=== PATIENT | female | born 1985 | race African-American/Black ===

== ENCOUNTER 2018-03-29 09:32 | Emergency (ER) | payer OTHER, MEDICARE, MEDICAID ==
[2018-03-29] MEDS ORDERED: KETOROLAC TROMETHAMINE 60 MG/2 ML SDV IM ONE (10:17)
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
--- NOTE | 2018-03-29 11:00 | RADIOLOGY REPORT (SQ) ---
EXAM DESCRIPTION: CT HEAD WITHOUT COMPLETED DATE/TIME: 03/29/2018 10:46 am REASON FOR STUDY: Head injury headache COMPARISON: Multiple since 05/15/2006 most recently 02/07/2014 TECHNIQUE: Axial images acquired through the brain without intravenous contrast. Images reviewed wi th bone, brain and subdural windows. Additional sagittal and coronal reconstructions were generated. Images stored on PACS. All CT scanners at this facility use dose modulation, iterative reconstruction, and/or weight based d osing when appropriate to reduce radiation dose to as low as reasonably achievable (ALARA). [facility]: Dose Right [facility]: CareDose [facility]: Dose Right [facility]: Teradose 4D [facility]: [facility] RADIATION DOSE: CT Rad equipment meets quality standard of care and radiation dose reduction techniq ues were employed. CTDIvol: 53.2 mGy. DLP: 1044 mGy-cm. mGy. LIMITATIONS: None. FINDINGS: VENTRICLES: Normal size and contour. CEREBRUM: No masses. No hemorrhage. No midline shift. No evidence for acute infarction. Normal gra y/white matter differentiation. No areas of low density in the white matter. CEREBELLUM: No masses. No hemorrhage. No alteration of density. No evidence for acute infarction. EXTRAAXIAL SPACES: No fluid collections. No masses. ORBITS AND GLOBE: No intra- or extraconal masses. Normal contour of globe without masses. CALVARIUM: No fracture. PARANASAL SINUSES: No fluid or mucosal thickening. SOFT TISSUES: No mass or hematoma. OTHER: No other significant finding. IMPRESSION: NORMAL BRAIN CT WITHOUT CONTRAST. EVIDENCE OF ACUTE STROKE: NO. COMMENT: Quality ID # [id number]: Final reports with documentation of one or more dose reduction techniques (e.g., Automated exposure control, adjustment of the mA and/or kV according to patient size, use of iterative reconstruction technique) TECHNICAL DOCUMENTATION: JOB ID: [id number] [employer]- All Rights Reserved Reading location - IP/workstation name: [email or web address]
[2018-03-29 12:33] VITALS: BP 116/63
== END 2018-03-29 12:34 | disposition home or self-care (01) ==
LOC: ER 09:32
DX: R51 Headache (principal); V68.6XXA Passenger in heavy transport vehicle injured in noncollision transport accident in traffic accident, initial encounter
CPT/HCPCS: 99284; 96372; 70450; J1885

== ENCOUNTER → 2019-03-28 | Outpatient (CLI) | payer MEDICARE, MEDICAID | LOC: RAD 10:15 | PROVIDERS: ATTEND Specialist | DX: G40.89 Other seizures (principal); G93.49 Other encephalopathy ==

== ENCOUNTER 2019-05-06 16:35 | Emergency (ER) | payer MEDICARE, MEDICAID ==
--- NOTE | 2019-05-06 16:56 | ER Document Report ---
ED Medical Screen (RME) - General Stated Complaint: POSSIBLE SEIZURE Time Seen by Provider: 05/06/19 16:44 Primary Care Provider: GEORGI SOTO MD [Primary Care Provider] - Follow up as needed Notes: RN states that EMS was called to patient's house initially for concern about seizure. Patient does have a history of seizures although patient denies any recent seizure. RN states that EMS reported that mother insisted that EMS take patient and not bring her back. Patient poor historian, patient does complain of tenderness to the right upper lip area I have greeted and performed a rapid initial assessment of this patient. A comprehensive ED assessment and evaluation of the patient, analysis of test results and completion of the medical decision making process will be conducted by additional ED providers. TRAVEL OUTSIDE OF THE [place] IN LAST 30 DAYS: No - Related Data Allergies/Adverse Reactions: phenytoin [From Dilantin] Allergy (Verified 05/06/19 16:43) Past Medical History Neurological Medical History: Reports: Hx Seizures Renal/ Medical History: Denies: Hx Peritoneal Dialysis - Immunizations Hx Diphtheria, Pertussis, Tetanus Vaccination: Yes - unknown Physical Exam - Skin Skin irregularity: other - Old appearing ulceration to inside right upper lip Doctor's Discharge - Discharge Referrals: GEORGI SOTO MD [Primary Care Provider] - Follow up as needed
--- NOTE | 2019-05-06 18:06 | ER Document Report ---
ED General - General Chief Complaint: Psych Problem Stated Complaint: POSSIBLE SEIZURE Time Seen by Provider: 05/06/19 16:44 Primary Care Provider: GEORGI SOTO MD [Primary Care Provider] - Follow up as needed Mode of Arrival: Medic Information source: Patient Cannot obtain history due to: Mentally challenged TRAVEL OUTSIDE OF THE [place] IN LAST 30 DAYS: No - HPI Onset: This afternoon Onset/Duration: Gradual Quality of pain: No pain Severity: None Associated symptoms: None Exacerbated by: Denies Relieved by: Denies Similar symptoms previously: No Recently seen / treated by doctor: No Notes: 33 year old female with a history of MR and Seizures brought to the ER for evalu ation. Apparently the patient's mother called EMS and told them to bring the patient to a mental hospital and EMS brought the patient here to this ER. The patient has MR and has no complaints except for a slightly swollen right upper lip which she says is from hitting mouth on her bed. The chief complaint is seizure but there was no seizure activity witnessed or reported by anyone. - Related Data Allergies/Adverse Reactions: phenytoin [From Dilantin] Allergy (Verified 05/06/19 16:43) Home Medications: keppra, depakote Past Medical History - General Information source: Patient Cannot obtain history due to: Mentally challenged - Social History Smoking Status: Never Smoker Frequency of alcohol use: None Drug Abuse: None Lives with: Family Family History: Reviewed & Not Pertinent Patient has suicidal ideation: No Patient has homicidal ideation: No Neurological Medical History: Reports: Hx Seizures, Other - MR Renal/ Medical History: Denies: Hx Peritoneal Dialysis - Immunizations Hx Diphtheria, Pertussis, Tetanus Vaccination: Yes - unknown Review of Systems - Review of Systems Constitutional: No symptoms reported EENT: Other - swollen right upper lip Cardiovascular: No symptoms reported Respiratory: No symptoms reported Gastrointestinal: No symptoms reported Genitourinary: No symptoms reported Female Genitourinary: No symptoms reported Musculoskeletal: No symptoms reported Skin: No symptoms reported Hematologic/Lymphatic: No symptoms reported Neurological/Psychological: No symptoms reported -: Yes All other systems reviewed and negative Physical Exam - Vital signs Vitals: Temp Resp Pulse Ox 98.0 F 19 100 05/06/19 16:44 05/06/19 16:44 05/06/19 16:44 - Notes Notes: GENERAL: Well-appearing, well-nourished and in no acute distress. Patient has clear MR. HEAD: Atraumatic, normocephalic. EYES: Pupils equal round and reactive to light, extraocular movements intact, sclera anicteric, conjunctiva are normal. ENT: Nares patent, oropharynx clear without exudates. Right upper lip is mildly swollen. Moist mucous membranes. NECK: Normal range of motion, supple without lymphadenopathy or JVD. LUNGS: Breath sounds clear to auscultation bilaterally and equal. No wheezes rales or rhonchi. HEART: Regular rate and rhythm without murmurs, rubs or gallops. ABDOMEN: Soft, nontender, normoactive bowel sounds. No guarding, no rebound. No masses appreciated. EXTREMITIES: Normal range of motion, no pitting or edema. No clubbing or cyanosis. NEUROLOGICAL: Patient has MR but no focal neuro deficits. Speech slow, gait not tested. PSYCH: Patient has MR, Patient is denying SI and HI. SKIN: Warm, Dry, normal turgor, no rashes or lesions noted. Course - Re-evaluation Re-evalutation: 05/06/19 18:49 The patient was brought to the ER for evaluation. The patient has MR and apparently her mother called 911 and told EMS to bring the patient to a psych hospital. The patient meets no inpatient psych criteria. Adult protective services was contacted since the patient is unable to care for herself and since the mother of the patient will not answer phone calls from nursing staff. - Vital Signs Vital signs: Temp Pulse Resp BP Pulse Ox 97.4 F 73 16 116/78 100 05/06/19 20:08 05/06/19 20:08 05/06/19 20:08 05/06/19 20:08 05/06/19 20:08 Discharge - Discharge Clinical Impression: Cough Contusion, lip Qualifiers: Encounter type: initial encounter Qualified Code(s): S00.531A - Contusion of lip, initial encounter Condition: Stable Disposition: HOME, SELF-CARE Instructions: Contusion ([facility]) Additional Instructions: Follow up with your primary care doctor and with adult protective services. Referrals: GEORGI SOTO MD [Primary Care Provider] - Follow up as needed
[2019-05-06 20:09] VITALS: BP 116/78
[2019-05-07] MEDS ORDERED: DIVALPROEX SODIUM 500 MG TAB.SR.24H PO ONE ×2 (02:16→08:55)
[2019-05-07] MEDS ORDERED: ZONISAMIDE 100 MG CAPSULE PO ONE (02:16)
[2019-05-07] MEDS ORDERED: LEVETIRACETAM 500 MG TABLET PO ONE ×2 (02:17→08:55)
[2019-05-07] MEDS ORDERED: ZONISAMIDE 100 MG CAPSULE PO SCH (09:00)
--- NOTE | 2019-05-07 09:28 | ER Document Report ---
Doctor's Note Notes: 05/07/19 09:26 Pt seen this am without acute medical issues. Sent here via EMS by mother. We have informed social work and they are going to provide some advice/ auto travel counselor as to this point the mother has been unable to be contacted or spoken with regarding this lady's disposition.
== END 2019-05-07 10:30 | disposition home or self-care (01) ==
LOC: ER 16:35
DX: S00.531A Contusion of lip, initial encounter (principal); R56.9 Unspecified convulsions; R05 Cough; F79 Unspecified intellectual disabilities; X58.XXXA Exposure to other specified factors, initial encounter
CPT/HCPCS: 99284; A9270 ×2

== ENCOUNTER → 2019-08-14 | Outpatient (CLI) | payer MEDICARE, MEDICAID ==
--- NOTE | 2019-08-14 17:47 | WOMENS IMAGING REPORT ---
EXAM DESCRIPTION: 3D DX MAMMO BILAT; U/S BREAST UNILATERAL, COMPL IMAGES COMPLETED DATE/TIME: 08/14/2019 9:58 am; 08/14/2019 10:52 am REASON FOR STUDY: N64.4 PAIN IN BOTH BREAST; LT BREAST N64.4; RT BREAST N64.4 N64.4 MASTODYNIA COMPARISON: Baseline study EXAM PARAMETERS: Standard craniocaudal and mediolateral oblique views of each breast recorded using digital acquisition and breast tomosynthesis. Read with the assistance of CAD: .[employer] - [facility] Version 9.2 LIMITATIONS: None. FINDINGS: RIGHT BREAST MASSES: Low-density well-circumscribed mammographic mass 5 mm in size far lateral right breast about 8 cm from the nipple. This was subsequently shown at ultrasound to represent a benign cyst. CALCIFICATIONS: No new or suspicious calcifications. ARCHITECTURAL DISTORTION: None. ASYMMETRY: None noted. OTHER: No other significant findings. LEFT BREAST MASSES: No suspicious masses. CALCIFICATIONS: No new or suspicious calcifications. ARCHITECTURAL DISTORTION: None. ASYMMETRY: None noted. OTHER: No other significant finding. Bilateral breast ultrasound: Patient presents with bilateral breast pain. Ultrasound of the right and left breasts was performed. In the right lateral breast about the 9 o'clock position, a 5 mm simple breast cyst is present. No o ther focal findings. No right breast solid masses, dilated ducts, worrisome acoustic absorption. Ultrasound of the left breast is unremarkable. No left breast solid masses, dilated ducts, cysts, wo rrisome acoustic absorption. IMPRESSION: No mammographic or sonographic evidence for malignancy bilaterally BREAST DENSITY: b. There are scattered areas of fibroglandular density. BIRAD: ASSESSMENT: 2 Benign findings. RECOMMENDATION: RECOMMENDED FOLLOW UP: Please continue yearly bilateral screening mammography beginn ing at age 38 SPECIFIC INTERVENTION/IMAGING/CONSULTATION RECOMMENDED:No additional intervention/ imaging/consultati on needed at this time. COMMUNICATION:Patient notified by letter COMMENT: The patient has been notified of the results by letter per MQSA requirements. Additional no tification policies are in place for contacting patient with suspicious or incomplete findings. Quality ID #[id number]: The [employer] recommends an annual screening mammogram for women aged 40 years or over. This facility utilizes a reminder system to ensure that all patients receive reminder letters, and/or direct phone calls for appointments. This includes reminders for routine scr eening mammograms, diagnostic mammograms, or other Breast Imaging Interventions when appropriate. Th is patient will be placed in the appropriate reminder system. TECHNICAL DOCUMENTATION: FINDING NUMBER: (1) ASSESSMENT: (1) JOB ID: [id number] 2010 [employer]- All Rights Reserved Reading location - IP/workstation name: [email or web address]
--- NOTE | 2019-08-14 17:47 | WOMENS IMAGING REPORT ---
EXAM DESCRIPTION: 3D DX MAMMO BILAT; U/S BREAST UNILATERAL, COMPL IMAGES COMPLETED DATE/TIME: 08/14/2019 9:58 am; 08/14/2019 10:52 am REASON FOR STUDY: N64.4 PAIN IN BOTH BREAST; LT BREAST N64.4; RT BREAST N64.4 N64.4 MASTODYNIA COMPARISON: Baseline study EXAM PARAMETERS: Standard craniocaudal and mediolateral oblique views of each breast recorded using digital acquisition and breast tomosynthesis. Read with the assistance of CAD: .[employer] - [employer] Version 9.2 LIMITATIONS: None. FINDINGS: RIGHT BREAST MASSES: Low-density well-circumscribed mammographic mass 5 mm in size far lateral right breast about 8 cm from the nipple. This was subsequently shown at ultrasound to represent a benign cyst. CALCIFICATIONS: No new or suspicious calcifications. ARCHITECTURAL DISTORTION: None. ASYMMETRY: None noted. OTHER: No other significant findings. LEFT BREAST MASSES: No suspicious masses. CALCIFICATIONS: No new or suspicious calcifications. ARCHITECTURAL DISTORTION: None. ASYMMETRY: None noted. OTHER: No other significant finding. Bilateral breast ultrasound: Patient presents with bilateral breast pain. Ultrasound of the right and left breasts was performed. In the right lateral breast about the 9 o'clock position, a 5 mm simple breast cyst is present. No o ther focal findings. No right breast solid masses, dilated ducts, worrisome acoustic absorption. Ultrasound of the left breast is unremarkable. No left breast solid masses, dilated ducts, cysts, wo rrisome acoustic absorption. IMPRESSION: No mammographic or sonographic evidence for malignancy bilaterally BREAST DENSITY: b. There are scattered areas of fibroglandular density. BIRAD: ASSESSMENT: 2 Benign findings. RECOMMENDATION: RECOMMENDED FOLLOW UP: Please continue yearly bilateral screening mammography beginn ing at age 40 SPECIFIC INTERVENTION/IMAGING/CONSULTATION RECOMMENDED:No additional intervention/ imaging/consultati on needed at this time. COMMUNICATION:Patient notified by letter COMMENT: The patient has been notified of the results by letter per MQSA requirements. Additional no tification policies are in place for contacting patient with suspicious or incomplete findings. Quality ID #225: The [employer] recommends an annual screening mammogram for women aged 40 years or over. This facility utilizes a reminder system to ensure that all patients receive reminder letters, and/or direct phone calls for appointments. This includes reminders for routine scr eening mammograms, diagnostic mammograms, or other Breast Imaging Interventions when appropriate. Th is patient will be placed in the appropriate reminder system. TECHNICAL DOCUMENTATION: FINDING NUMBER: (1) ASSESSMENT: (1) JOB ID: [id number] 2010 [employer]- All Rights Reserved Reading location - IP/workstation name: [email or web address]
--- NOTE | 2019-08-14 17:47 | WOMENS IMAGING REPORT ---
EXAM DESCRIPTION: 3D DX MAMMO BILAT; U/S BREAST UNILATERAL, COMPL IMAGES COMPLETED DATE/TIME: 08/14/2019 9:58 am; 08/14/2019 10:52 am REASON FOR STUDY: N64.4 PAIN IN BOTH BREAST; LT BREAST N64.4; RT BREAST N64.4 N64.4 MASTODYNIA COMPARISON: Baseline study EXAM PARAMETERS: Standard craniocaudal and mediolateral oblique views of each breast recorded using digital acquisition and breast tomosynthesis. Read with the assistance of CAD: .[employer] - [employer] Version 9.2 LIMITATIONS: None. FINDINGS: RIGHT BREAST MASSES: Low-density well-circumscribed mammographic mass 5 mm in size far lateral right breast about 8 cm from the nipple. This was subsequently shown at ultrasound to represent a benign cyst. CALCIFICATIONS: No new or suspicious calcifications. ARCHITECTURAL DISTORTION: None. ASYMMETRY: None noted. OTHER: No other significant findings. LEFT BREAST MASSES: No suspicious masses. CALCIFICATIONS: No new or suspicious calcifications. ARCHITECTURAL DISTORTION: None. ASYMMETRY: None noted. OTHER: No other significant finding. Bilateral breast ultrasound: Patient presents with bilateral breast pain. Ultrasound of the right and left breasts was performed. In the right lateral breast about the 9 o'clock position, a 5 mm simple breast cyst is present. No o ther focal findings. No right breast solid masses, dilated ducts, worrisome acoustic absorption. Ultrasound of the left breast is unremarkable. No left breast solid masses, dilated ducts, cysts, wo rrisome acoustic absorption. IMPRESSION: No mammographic or sonographic evidence for malignancy bilaterally BREAST DENSITY: b. There are scattered areas of fibroglandular density. BIRAD: ASSESSMENT: 2 Benign findings. RECOMMENDATION: RECOMMENDED FOLLOW UP: Please continue yearly bilateral screening mammography beginn ing at age 38 SPECIFIC INTERVENTION/IMAGING/CONSULTATION RECOMMENDED:No additional intervention/ imaging/consultati on needed at this time. COMMUNICATION:Patient notified by letter COMMENT: The patient has been notified of the results by letter per MQSA requirements. Additional no tification policies are in place for contacting patient with suspicious or incomplete findings. Quality ID #[id number]: The [employer] recommends an annual screening mammogram for women aged 40 years or over. This facility utilizes a reminder system to ensure that all patients receive reminder letters, and/or direct phone calls for appointments. This includes reminders for routine scr eening mammograms, diagnostic mammograms, or other Breast Imaging Interventions when appropriate. Th is patient will be placed in the appropriate reminder system. TECHNICAL DOCUMENTATION: FINDING NUMBER: (1) ASSESSMENT: (1) JOB ID: [id number] 2010 [employer]- All Rights Reserved Reading location - IP/workstation name: [email or web address]
== END ==
LOC: WI 09:30
PROVIDERS: ATTEND Nurse Practitioner Family
DX: N60.01 Solitary cyst of right breast (principal); N64.4 Mastodynia
CPT/HCPCS: 76641; 77066; G0279; 77062